=== PATIENT | female | born 1985 | race American Indian/Alaskan Native ===

== ENCOUNTER 2019-04-29 20:23 | Emergency (ER) | payer MEDICAID ==
--- NOTE | 2019-04-29 20:55 | Event Note ---
{null, ED Screening Note ED Screening Note: states she had a panic attack +SI has depression states she has attempted three times in the past to harm herself states she took three 10 mg percocet, states she bought them off the street, states she also took two loratab 10mg states she took it around 12pm states she has been to psych facility at 18 denies any other drug use occ drinker, denies alcohol tonight +smoker states the only symptom she has is her chest hurts PMHx ovarian cyst no allergies to meds This initial assessment/diagnostic orders/clinical plan/treatment(s) is/are subject to change based on patients health status, clinical progression and re- assessment by fellow clinical providers in the ED. Further treatment and workup at subsequent clinical providers discretion. Patient/guardian urged not to elope from the ED as their condition may be serious if not clinically assessed and managed. Initial orders include: CP/mental health protocol ED HOLD charge nurse notified needs mental health room SELENE }
[2019-04-29 21:25] LABS: Amphetamine Screen,Urine PRESUMPTIVE NEGATIVE; Benzodiazepines Screen,Urine PRESUMPTIVE NEGATIVE; Cocaine Screen,Urine PRESUMPTIVE NEGATIVE; Methadone Screen,Urine PRESUMPTIVE NEGATIVE; Opiate Screen,Urine PRESUMPTIVE NEGATIVE
[2019-04-29 21:26] LABS: Bacteria,Urine 1+ /HPF (Negative); Bilirubin,Urine NEG (Negative); Blood,Urine NEG (Negative); Color,Urine Yellow (Yellow); Mucus,Urine FEW /HPF; Protein,Urine <15 mg/dL mg/dL (Negative); Urobilinogen,Urine < 2.0 mg/dL (<2.0)
[2019-04-29 21:31] LABS: Basophils # (Auto) 0.1 K/mm3 (0.0-0.1); Basophils % (Auto) 0.6 % (0.0-1.8); Eosinophils # (Auto) 0.2 K/mm3 (0.0-0.4); Eosinophils % (Auto) 1.2 % (0.0-4.3); Hematocrit 39.5 % (30.3-42.9); Hemoglobin 13.8 gm/dl (10.1-14.3); Lymphocytes # (Auto) 3.3 K/mm3 (1.2-5.4); Lymphocytes % (Auto) 25.3 % (13.4-35.0); Mean Corpuscular HGB Conc 35 % (30-34); Mean Corpuscular Volume 99 fl (79-97); Monocytes # (Auto) 0.8 K/mm3 (0.0-0.8); Monocytes % (Auto) 6.4 % (0.0-7.3); Red Blood Count 3.98 M/mm3 (3.65-5.03); Red Cell Distribution Width 13.7 % (13.2-15.2)
[2019-04-29 21:38] LABS: Cannabinoid Screen,Urine PRESUMPTIVE POSITIVE
[2019-04-29 21:55] LABS: Alanine Aminotransferase 12 units/L (7-56); BUN/Creatinine Ratio 12; Blood Urea Nitrogen 6 mg/dL (7-17); Calcium 8.9 mg/dL (8.4-10.2); Hemolysis Index 25
[2019-04-29 22:14] LABS: Platelet Count 282 K/mm3 (140-440)
--- NOTE | 2019-04-29 23:17 | XRay Report ---
{null, CHEST 1 VIEW INDICATION / CLINICAL INFORMATION: chest pain. COMPARISON: None available. FINDINGS: SUPPORT DEVICES: None. HEART / MEDIASTINUM: No significant abnormality. LUNGS / PLEURA: No significant pulmonary or pleural abnormality.. No pneumothorax. ADDITIONAL FINDINGS: No significant additional findings. IMPRESSION: 1. No acute findings. Signer Name: Robe Goldsmith MD Signed: 04/29/2019 11:13 PM Workstation Name: [id number] }
[2019-04-30 01:08] LABS: Alanine Aminotransferase 11 units/L (7-56); Albumin 3.7 g/dL (3.9-5)
[2019-04-30 01:09] LABS: Bilirubin,Direct < 0.2 mg/dL (0-0.2)
--- NOTE | 2019-04-30 01:36 | Emergency Department Report ---
{null, <MERRITT BALBUENA - Last Filed: 04/30/19 13:56> ED Psych HPI - General Chief Complaint: Chest Pain Stated Complaint: CP Time Seen by Provider: 04/29/19 20:51 - Related Data Allergies Allergy/AdvReac Type Severity Reaction Status Date / Time No Known Allergies Allergy Verified 04/29/19 20:27 ED Medical Decision Making - Lab Data Result diagrams: 04/29/19 21:07 04/29/19 21:07 Critical Care Time: No ED Disposition Clinical Impression: Suicidal ideation, Depression, Opiate abuse, continuous Disposition: DC-01 TO HOME OR SELFCARE Is pt being admited?: No Does the pt Need Aspirin: No Condition: Stable Instructions: Narcotic Abuse (ED) Additional Instructions: Follow-up with the resources provided by psychiatry. Return if symptoms worsen as indicated by your discharge instructions. Referrals: PRIMARY CAREMD [Primary Care Provider] - 3-5 Days [facility] [Outside] - 3-5 Days JESSICA CHATTERJEE MD [Staff Physician] - 3-5 Days (primary care doctor ) Time of Disposition: 14:01 <EL LANG - Last Filed: 05/01/19 02:20> ED Psych HPI - General Source: patient Mode of arrival: Ambulatory - History of Present Illness Initial Comments: Patient is 33 years old female with history of depression and panic attack. Patient presented to the ER complaining of severe depression and suicidal ideation. Patient stated that she is thinking of overdosing on medication. Patient stated that she is going through a tough time with her family. She stated that she is a single mom and nobody is helping her. Patient stated that she has been taking Percocet that she bought from street. She denied any auditory or visual hallucination. No homicidal ideation. Complaint: suicidal ideation, feels depressed -: This afternoon Associated Psychiatric Symptoms: depression, suicidal ideation History of same: Yes Quality: constant Context: recent drug abuse Associated Symptoms: denies other symptoms Treatments Prior to Arrival: none If Self Harm: admits thoughts of, has plan, intentional overdose ED Review of Systems ROS: Stated complaint: CP Other details as noted in HPI Comment: All other systems reviewed and negative Constitutional: denies: chills, fever Respiratory: denies: cough, shortness of breath, SOB with exertion, wheezing Cardiovascular: chest pain. denies: palpitations Gastrointestinal: denies: abdominal pain, nausea, vomiting Psychiatric: anxiety, depression, suicidal thoughts. denies: auditory hallucinations, visual hallucinations, homicidal thoughts ED Past Medical Hx - Past Medical History Previous Medical History?: Yes Hx Psychiatric Treatment: Yes (panic attacks, depression) Additional medical history: ovarian cysts - Surgical History Past Surgical History?: No - Social History Smoking Status: Current Every Day Smoker Substance Use Type: Alcohol ED Physical Exam - General Limitations: No Limitations General appearance: alert, in no apparent distress, anxious - Head Head exam: Present: atraumatic, normocephalic, normal inspection - Eye Eye exam: Present: normal appearance - ENT ENT exam: Present: normal exam, normal orophraynx, mucous membranes moist - Neck Neck exam: Present: normal inspection, full ROM. Absent: tenderness, meningismus, lymphadenopathy, thyromegaly - Respiratory Respiratory exam: Present: normal lung sounds bilaterally - Cardiovascular Cardiovascular Exam: Present: regular rate, normal rhythm, normal heart sounds - GI/Abdominal GI/Abdominal exam: Present: soft, normal bowel sounds. Absent: distended, tenderness, guarding, rebound, rigid, organomegaly, mass, bruit, pulsatile mass, hernia - Extremities Exam Extremities exam: Present: normal inspection, full ROM, normal capillary refill. Absent: pedal edema, calf tenderness - Back Exam Back exam: Present: normal inspection, full ROM. Absent: CVA tenderness (R), CVA tenderness (L), muscle spasm, paraspinal tenderness, vertebral tenderness - Neurological Exam Neurological exam: Present: alert, oriented X3, CN II-XII intact, normal gait, reflexes normal - Psychiatric Psychiatric exam: Present: depressed, anxious, suicidal ideation. Absent: agitated, homicidal ideation - Skin Skin exam: Present: warm, intact, normal color ED Course Vital Signs 04/29/19 04/29/19 04/29/19 20:41 20:52 21:35 Temperature 97.7 F 97.7 F 98.2 F Pulse Rate 92 H 92 H 86 Respiratory 16 18 19 Rate Blood Pressure 123/53 Blood Pressure 123/53 120/74 [Right] O2 Sat by Pulse 100 100 100 Oximetry 04/30/19 04/30/19 04/30/19 01:40 03:37 07:48 Temperature 98.6 F 98.0 F Pulse Rate 82 83 74 Respiratory 18 18 Rate Blood Pressure Blood Pressure 99/59 101/55 109/60 [Right] O2 Sat by Pulse 99 99 Oximetry ED Medical Decision Making - Lab Data Result diagrams: 04/29/19 21:07 04/29/19 21:07 - EKG Data -: EKG Interpreted by Me EKG shows normal: sinus rhythm Rate: normal - EKG Data Interpretation: no acute changes - Radiology Data Radiology results: report reviewed - Medical Decision Making Patient is 33 years old female with history of depression and panic attack. Patient presented to the ER complaining of severe depression and suicidal ideation. Patient stated that she is thinking of overdosing on medication. Patient stated that she is going through a tough time with her family. She stated that she is a single mom and nobody is helping her. Patient stated that she has been taking Percocet that she bought from street. She denied any auditory or visual hallucination. No homicidal ideation. Labs reviewed and is unremarkable including a negative troponin. EKG is unremarkable. Chest x-ray is negative for acute finding. Patient is a 1013 secondary to active suicidal thoughts. Poison control was contacted for possible Percocet overdose and advised to do a serial EKG and liver function te st. Patient is medically clear for psychiatric evaluation. Critical care attestation.: If time is entered above; I have spent that time in minutes in the direct care of this critically ill patient, excluding procedure time. }
[2019-04-30 07:50] VITALS: BP 109/60
[2019-04-30] MEDS ORDERED: ONDANSETRON 4 MG ODT TAB PO ONE (10:11)
[2019-04-30] MEDS ORDERED: ONDANSETRON 4 MG ODT TAB ONE (10:13)
== END 2019-04-30 14:09 | disposition home or self-care (01) ==
LOC: ED 20:23
DX: F32.9 Major depressive disorder, single episode, unspecified (principal); F41.0 Panic disorder [episodic paroxysmal anxiety]; F17.200 Nicotine dependence, unspecified, uncomplicated; F11.10 Opioid abuse, uncomplicated
CPT/HCPCS: 36415; 71045; 80053; 80076; 80307; 80320; 81001; 84484; 84703; 85025; 93005; 93010; G0480; Q0162